=== PATIENT | male | born 1955 | race Caucasian/White ===

== ENCOUNTER 2017-02-10 15:31 | Emergency (ER) | payer BC ==
[2017-02-10 16:00] VITALS: BP 147/74; PULSE 71; TEMP 97.6; BMI 19.5
[2017-02-10] MEDS ORDERED: IBUPROFEN 600 MG TABLET (FP) PO ONE ×2 (16:12→16:17)
--- NOTE | 2017-02-10 16:18 | PDOC ---
History of Present Illness - General Chief Complaint: Injury Stated Complaint: FALL Time Seen by Provider: 02/10/17 15:48 History Source: Patient Exam Limitations: No Limitations - History of Present Illness Initial Comments: 02/10/17 16:13 Patient was coming down staircase in Slippery slippers on wooden floor stumbled and slipped falling approximately 6- 7 stairs forward landing on his rightshoulder and striking the back of his right side of head. There was no LOC, no nausea or vomiting, no mental status changes, no inappropriate behavior verified by daughter. is here for evaluation and pain without immobility to right shoulder. He shouldn't suffers from Parkinson's, however is fairly steady on his feet and is taking medication with good resolve of many of symptoms. Occurred: reports: just prior to arrival Severity: reports: mild, moderate Pain Location: reports: head, upper extremity Method of Injury: Yes: fall Loss of Consciousness: no loss of consciousness Associated Symptoms (Fall): denies symptoms Past History - Travel Traveled outside of the country in the last 30 days: No Close contact w/someone who was outside of country & ill: No - Past Medical History Allergies/Adverse Reactions: Allergies Allergy/AdvReac Type Severity Reaction Status Date / Time No Known Allergies Allergy Verified 02/10/17 15:42 Home Medications: Ambulatory Orders Carbidopa/Levodopa [Carbidopa-Levodopa 25-100 Tab] 1 each PO ASDIR 02/10/17 Carbidopa/Levodopa [Carbidopa-Levodopa 25-100 Tab] 2 each PO ASDIR 02/10/17 Rasagiline Mesylate 1 mg PO DAILY 02/10/17 Sertraline HCl 50 mg PO DAILY 02/10/17 COPD: No Psychiatric Problems: Yes (anxiety) Other medical history: Parkinston's - Suicide/Smoking/Psychosocial Hx Smoking History: Never smoked Have you smoked in the past 12 months: No Information on smoking cessation initiated: No Hx Alcohol Use: No Drug/Substance Use Hx: No Substance Use Type: None Review of Systems - Review of Systems Able to Perform ROS?: Yes Is the patient limited Chinese proficient: Yes Constitutional: Yes: See HPI. No: Symptoms Reported, Chills, Fever HEENTM: Yes: See HPI. No: Symptoms Reported, Nose Congestion, Nose Bleeding Respiratory: No: Symptoms reported Cardiac (ROS): No: Symptoms Reported ABD/GI: No: Symptoms Reported Musculoskeletal: Yes: Symptoms Reported, See HPI, Joint Swelling, Joint Stiffness (right ). No: Neck Pain Neurological: Yes: See HPI. No: Symptoms reported, Headache All Other Systems: Reviewed and Negative *Physical Exam - Vital Signs Last Vital Signs Temp Pulse Resp BP Pulse Ox 97.6 F 71 18 147/74 100 02/10/17 15:33 02/10/17 15:33 02/10/17 15:33 02/10/17 15:33 02/10/17 15:33 - Physical Exam General Appearance: Yes: Nourished, Appropriately Dressed, Apparent Distress, Mild Distress HEENT: positive: JEROME, Normal ENT Inspection, Pharynx Normal, Other (skull has no swelling, crepitus, step-offs, abrasion or evidence of injury.). negative: TMs Normal (no hemotympanum, no bleeding from nose or ears) Neck: positive: Supple, Other (has some mild stiffness however has no reproducible tenderness along cervical spine, no crepitus or step-offs, musculature within normal limits for patient.). negative: Tender (no vertebral tenderness, crepitus or step-offs, has ) Respiratory/Chest: positive: Lungs Clear, Normal Breath Sounds Cardiovascular: positive: Regular Rhythm Gastrointestinal/Abdominal: positive: Soft. negative: Tender Musculoskeletal: positive: Normal Inspection. negative: CVA Tenderness, Muscle Spasm, Vertebral Tenderness Extremity: positive: Normal Capillary Refill, Normal Range of Motion (patient right arm and shoulder has normal range of motion and able to abduct and forward flex against resistance), Swelling. negative: Normal Inspection Integumentary: positive: Swelling, Ecchymosis, Bruising Neurologic: positive: manager long term care II-XII NML intact, Fully Oriented, Alert, Normal Mood/ Affect, Motor Strength 5/5 ED Treatment Course - RADIOLOGY Radiology Studies Ordered: Category Date Time Status SHOULDER-RIGHT [RAD] Stat Radiology 02/10/17 16:12 Ordered Progress Note - Progress Note Progress Note: Daughter at bedside with patient and deems patient's mental status completely unchanged, no significant tenderness, no distracting injury, no vomiting, no other neurologic change. Due to lack of significant pathology or clinical evidence of significant head injury patient and daughter agree CAT scan could be held unless symptoms would change/ x-ray negative for fractures or dislocations, we'll treat conservatively and recommend follow-up upon return home to [place] tomorrow *DC/Admit/Observation/Transfer Diagnosis at time of Disposition: Superficial injury of head Qualifiers: Encounter type: initial encounter Qualified Code(s): S00.90XA - Unspecified superficial injury of unspecified part of head, initial encounter Contusion of right shoulder Qualifiers: Encounter type: initial encounter Qualified Code(s): S40.011A - Contusion of right shoulder, initial encounter - Discharge Dispostion Disposition: HOME Condition at time of disposition: Stable Admit: No - Referrals - Patient Instructions Printed Discharge Instructions: DI for Closed Head Injury, DI for Contusion Additional Instructions: Rest, ice to area on and off for 15 minutes 4-6 times a day Avoid heavy lifting or exercise until pain and swelling is resolved or until further directed Keep area highly elevated to reduce swelling Use splints/Manuel wrap as directed Followup with orthopedist in one to 2 days if not improving, if significantly improved may wait one week for followup with orthopedist May use ibuprofen 2-200 mg tablets every 6 hours as needed for pain Rest, avoid strenuous activity or exercise for the next 24-48 hours Watch and seek evaluation for changes in behavior including crankiness, inconsolability, quietness/ sleepiness that is inappropriate, tiredness that is inappropriate, watch for worsening and changes of behavior. Seek immediate evaluation/return to emergency department for vomiting, mental status changes, pain that's out of proportion , bloody drainage from ears or nose. Followup with private physician as needed in one to 2 days for reevaluation - Post Discharge Activity
== END 2017-02-10 17:22 | disposition home or self-care (01) ==
LOC: JER 15:31
DX: S09.90XA Unspecified injury of head, initial encounter (principal); S40.011A Contusion of right shoulder, initial encounter; W10.9XXA Fall (on) (from) unspecified stairs and steps, initial encounter; Y93.89 Activity, other specified; Y92.9 Unspecified place or not applicable; G20 Parkinson's disease; F41.9 Anxiety disorder, unspecified
CPT/HCPCS: 73030-TC-RT; 99282-25